=== PATIENT | female | born 1990 | race Caucasian/White ===

== ENCOUNTER → 2017-06-26 19:09 | Outpatient (CLI) | payer MEDICAID, SELFPAY ==
[2017-06-26 23:14] LABS: Chlamydia Trachomatis by PCR Negative (Negative); Neisserai gonorrhoeae by PCR Negative (Negative); Probe Check PASS; Sample Adequacy Control PASS; Specimen Processing Control PASS
[2017-07-18 12:44] LABS: HPV Reflexed? NOT INDICATED
== END ==
PROVIDERS: Visit Provider Obstetrics & Gynecology
DX: R87.612 Low grade squamous intraepithelial lesion on cytologic smear of cervix (LGSIL) (principal); Z12.4 Encounter for screening for malignant neoplasm of cervix; Z11.3 Encounter for screening for infections with a predominantly sexual mode of transmission
CPT/HCPCS: 87491; 87591; 88175; G0145

== ENCOUNTER → 2017-07-10 11:56 | Outpatient (CLI) | payer MEDICAID, SELFPAY ==
[2017-07-10 12:45] LABS: Absolute Lymphocyte Count 1.14 X10^3/ul (0.83-4.51); Absolute Neutrophil Count 3.7 X10^3/uL (2.0-7.7); Basophil# 0.01 X10^3/uL; Basophil% 0.2 % (0-1); Eosinophil# 0.11 X10^3/uL; Hematocrit 35.9 % (37-47); Lymphocyte # 1.14 X10^3/ul (4.0); Lymphocyte % 21.1 % (19-41); Mean Corp Hgb Conc 33.4 g/gl (32-36); Mean Corpuscular Hgb 28.6 pg (27.0-32.0); Mean Corpuscular Volume 85.5 fL (81-99); Monocyte# 0.43 X10^3/uL; Monocyte% 7.9 % (0-10); Neutrophil % 68.4 % (47-70); Platelet Count 191 K/mm3 (150-450); RBC Distribution Width SD 44.1 fl (35.1-43.9); White Blood Count 5.4 K/mm3 (4.4-11.0)
[2017-07-10 12:53] LABS: POSITIVE COUNT NO; POSITIVE DIFFERENTIAL NO; POSITIVE MORPHOLOGY NO
[2017-07-10 13:31] LABS: Color, Urine Yellow (Yellow); Glucose, Dipstick Normal (Normal); Ketone-Dipstick Negative (Negative); Leukocyte Esterase-Dipstick 500 /ul (Negative); Nitrite-Dipstick Negative (Negative); Occult Blood-Urine 25 /ul (Negative); Protein-Dipstick Negative (Negative); Urine Bilirubin Dipstick Negative (Negative); Urine Clarity Cloudy (Clear); Urine Urobilinogen Normal (Normal)
[2017-07-10 13:50] LABS: COTININE Drug Screen Negative (<200 ng/mL)
[2017-07-10 13:54] LABS: Amphetamine Urine VISTA NEGATIVE (<1000 ng/mL); Barbiturate Urine VISTA NEGATIVE (< 200 ng/mL); Benzodiazepine Urine VISTA NEGATIVE (< 200 ng/mL); Cocaine Urine VISTA NEGATIVE (< 300 ng/mL); Ecstacy Urine VISTA NEGATIVE (< 500 ng/mL); Methadone Urine VISTA NEGATIVE (< 300 ng/mL); PCP Urine VISTA NEGATIVE (< 25 ng/mL); THC Urine VISTA NEGATIVE (< 50 ng/mL); Vista UDS pH Range 6
[2017-07-11 02:34] LABS: Prenatal RPR NONREACTIVE (NONREACTIVE)
[2017-07-11 09:07] LABS: HEPATITIS B SURFACE AG Negative (Negative); Hep C Antibodies <0.1 s/co ratio (0.0-0.9)
[2017-07-11 12:33] LABS: HIV - WCH Non-Reactive (Nonreactive); Rubella IgG 121.1 IU/mL
== END ==
PROVIDERS: Visit Provider Obstetrics & Gynecology
DX: Z34.81 Encounter for supervision of other normal pregnancy, first trimester (principal)
CPT/HCPCS: 36415; 80307; 81002; 84443; 85025; 86703; 86762; 86803; 87340

== ENCOUNTER → 2017-11-27 13:21 | Outpatient (CLI) | payer MEDICAID, SELFPAY ==
[2017-11-27 14:03] LABS: Hematocrit 30.1 % (37-47); Hemoglobin 10.1 g/dl (12.0-15.0); Mean Corp Hgb Conc 33.6 g/gl (32-36); Mean Corpuscular Hgb 30.1 pg (27.0-32.0); Mean Corpuscular Volume 89.9 fL (81-99); Mean Platelet Vol. 11.4 fl (6.2-12.0); Platelet Count 172 K/mm3 (150-450); RBC Distribution Width CV 13.2 % (11.6-14.6); RBC Distribution Width SD 41.8 fl (35.1-43.9); Red Blood Count 3.35 M/mm3 (4.2-5.4); White Blood Count 5.6 K/mm3 (4.4-11.0)
[2017-11-27 14:04] LABS: Scan Indicated on CBC? Y/N NO
[2017-11-27 14:08] LABS: Glucose Challenge Gest 1H 50g 100 mg/dL (70-140)
== END ==
PROVIDERS: Visit Provider Obstetrics & Gynecology
DX: Z34.82 Encounter for supervision of other normal pregnancy, second trimester (principal)
CPT/HCPCS: 82950; 85027; 86850; 86870

== ENCOUNTER → 2018-01-30 12:39 | Outpatient (CLI) | payer MEDICAID, SELFPAY ==
[2018-01-30 15:17] LABS: Group B Strep DNA By PCR Negative (Negative); Internal Control PASS; Probe Check PASS; Specimen Processing Control PASS
== END ==
PROVIDERS: Visit Provider Obstetrics & Gynecology
DX: Z36.85 Encounter for antenatal screening for Streptococcus B (principal)
CPT/HCPCS: 87081; 87653

== ENCOUNTER 2018-02-17 08:30 | Inpatient (IN) | payer MEDICAID, SELFPAY ==
[2018-02-17] MEDS: Lactated Ringers 1,000 ML 50 ML IV ×2 (08:55→10:14)
[2018-02-17 09:01] VITALS: BMI 30.4
[2018-02-17 09:17] LABS: Hematocrit 37.2 % (37-47); Hemoglobin 12.3 g/dl (12.0-15.0); Mean Corp Hgb Conc 33.1 g/gl (32-36); Mean Corpuscular Hgb 30.4 pg (27.0-32.0); Mean Corpuscular Volume 92.1 fL (81-99); Mean Platelet Vol. 10.3 fl (6.2-12.0); Platelet Count 118 K/mm3 (150-450); RBC Distribution Width CV 15.3 % (11.6-14.6); RBC Distribution Width SD 51.7 fl (35.1-43.9); Red Blood Count 4.04 M/mm3 (4.2-5.4); White Blood Count 5.7 K/mm3 (4.4-11.0)
[2018-02-17 09:19] LABS: Scan Indicated on CBC? Y/N NO
[2018-02-17] MEDS: fentaNYL-bupivacaine (epidural) 100 ML BAG EPIDURAL (09:35)
[2018-02-17] MEDS: DiphenhydrAMINE 25 MG Capsule PO (13:15)
[2018-02-17] MEDS: Oxytocin 30 units/NS 500 ml 30 UNITS/500 ML IV.SOLN 334 UNITS IV (14:32)
--- NOTE | 2018-02-17 14:45 | PCM.OB.VAG ---
Vaginal Delivery Maternal Presentation: Active Labor 39w3d ega in active labor Amniotic Membrane Rupture Type: Artificial Rupture of Membrane time: 0945 Amniotic Fluid Description: Clear Final LUANNE: 02/21/18 Final LUANNE Source: US <20 weeks Gestational age: 39 Weeks and 3 Days Date of Procedure: 02/17/18 Pre-Operative Diagnosis: Labor Post-Operative Diagnosis: same Surgery/ Procedure Performed: Spontaneous Vaginal Delivery Anesthesiologist: Levy Talbert Type of Anesthesia: Epidural Description of Procedure: Brittani was admitted at 4-5 cm dilated. Uncomplicated . She progressed to over about 6 hours then pushed for about an hour to deliver a live female neonated without complication. Delayed cord clamping was employed. The cord was then clamped and cut and baby placed on mom's chest for skin to skin. Cord bloods were collected. The placenta was delivered spontaneously intact with a centrally located 3VC. The uterus contracted well. The cervix, upper and lower vagina were inspected and found to be intact. Presentation: Vertex Placental Delivery Description: Spontaneous Placenta Disposition: [facility] Percentage of Placenta Abruption: 0 Cord Vessel Description: 3 Vessels Nuchal Cord Compression: Without compression Cord Entanglement: None Estimated Blood Loss: 200cc A gender: Female (1 minute): 9 (5 minute): 9 Episiotomy Description: None Laceration: None Medications given after delivery: IV Pitocin Complications: None
--- NOTE | 2018-02-17 14:52 | DCINST_ITS ---
Discharge Diet: No Restrictions Discharge Activity: Return to Normal Activity, May Drive Return to work on:: 04/20/18 May shower in (days): 0 May resume sexual activity in: 4-6 weeks Call your doctor if your incision/area has: Sudden Increased Bleeding, Foul Smelling Discharge Call your doctor if you observe: Fever of 101 or Higher, Inability to urinate, Inability to have a bowel movement, Using more than one pad per hour, Shortness of breath, Chest pain, Calf discomfort, Uncontrolled pain Cleanse incision/area with: Soap & Water Additional Instructions: If you experience any of the following, contact your healthcare provider. * Bleeding that soaks a pad every hour for 2 hours * Fever 100.4 or higher * Unrelieved incision or abdominal pain * Swelling, redness, discharge or bleeding from your incision or episiotomy site * Your incision begins to separate * Problems urinating (including inability to urinate or burning while urina ting). * Visual changes * Severe headache * Flu-like symptoms * Pain or redness in one of both of your breasts * Pain, warmth, tenderness or swelling in your legs, especially the calf area * Frequent nausea and vomiting * Symptoms of depression or anxiety If you experience any of the following, call 911 or go to the nearest Emergency Room. * Chest pain * Problems breathing * Seizure activity * Partial or complete paralysis of a body part, slurred speech, weakness or drooping of the face, or a sudden inability to walk or hold your balance Allergies/Adverse Reactions: Allergies Penicillins Allergy (Verified 02/17/18 09:04) Hives Medications to take at Discharge Sertraline HCl 1.5 tab PO BID 10/13/15 Ferrous Gluconate 325 mg PO DAILY@0800 02/17/18 Ibuprofen 600 mg PO 4X/DAY #30 tab 02/17/18 Sertraline HCl [Zoloft] 150 mg PO DAILY tablet 02/17/18 The following prescriptions were given: Ibuprofen 600 mg PO 4X/DAY #30 tab Please Follow Up With: Rell Palma MD When: 6 weeks Primary Care Physician: Moises Spence MD [Primary Care Provider] - Test Results: Test results from this visit will be discussed in further detail at your follow- up appointment, if applicable. Proposed Discharge Date: 02/19/18
[2018-02-17] MEDS: Oxytocin 30 units/NS 500 ml 30 UNITS/500 ML IV.SOLN 167 UNITS IV (15:00)
[2018-02-17] MEDS: Methylergonovine 0.2 MG/ML Ampul IM (15:05)
[2018-02-17] MEDS: Ondansetron 4 MG/2 ML Vial IV (16:01)
[2018-02-17 16:10] VITALS: BP 118/61; PULSE 68; RESP 18; TEMP 36.9; O2SAT 99
[2018-02-17] MEDS: Ibuprofen 600 MG Tablet PO (19:11)
[2018-02-17 20:00] VITALS: BP 109/68; PULSE 71; RESP 14; TEMP 36.7; O2SAT 96
[2018-02-17 23:32] VITALS: BP 106/56; PULSE 60; RESP 14; TEMP 36.5; O2SAT 97
[2018-02-18 05:00] VITALS: BP 109/62; PULSE 71; RESP 14; TEMP 36.6; O2SAT 97
[2018-02-18] MEDS: Ibuprofen 600 MG Tablet PO ×2 (05:22→11:17)
[2018-02-18 07:13] LABS: Hematocrit 39.2 % (37-47); Mean Corp Hgb Conc 33.2 g/gl (32-36); Mean Corpuscular Hgb 30.9 pg (27.0-32.0); Mean Corpuscular Volume 93.1 fL (81-99); Mean Platelet Vol. 10.7 fl (6.2-12.0); Platelet Count 99 K/mm3 (150-450); RBC Distribution Width CV 15.4 % (11.6-14.6); RBC Distribution Width SD 52.2 fl (35.1-43.9); Red Blood Count 4.21 M/mm3 (4.2-5.4); Scan Indicated on CBC? Y/N NO
[2018-02-18] MEDS: Acetaminophen 500 MG Tablet 1000 MG PO (08:02)
[2018-02-18 08:12] VITALS: BP 105/59; PULSE 70; RESP 18; TEMP 36.4
--- NOTE | 2018-02-18 08:32 | PCM.PN.OB ---
Subjective: Some right upper leg weakness but had before delivery as well. Bleeding light. Breast feeding. Objective: Afeb VSS Hgb appropriate. Received rhogam. - Physical Exam General: Alert, Oriented x3, Cooperative, No apparent distress Lungs: Clear to auscultation, Normal air movement Cardiovascular: Regular rate, Regular Rhythm Abdomen: Soft, Non Tender, Non-Distended, - - Fundus firm nontender Extremities: No edema, No Calf Tenderness Skin: No rashes Neurological: Neuro grossly intact Psych/Mental Status: Normal Affect Comment: Lochia light Vital Signs Temp Pulse Resp BP Pulse Ox 97.6 F L 70 18 105/59 L 97 02/18/18 08:12 02/18/18 08:12 02/18/18 08:12 02/18/18 08:12 02/18/18 05:00 Oxygen Delivery Method Room Air Weight: 166 lb 6.4 oz Body Mass Index (BMI) 30.4 Intake and Output for Last 24 Hours 02/16/18 02/17/18 02/18/18 23:59 23:59 23:59 Output Total 1200 / 1200 Balance -1200 / -1200 Laboratory Tests Past 24 Hrs 02/17/18 02/17/18 02/17/18 08:55 08:55 17:52 WBC 5.7 RBC 4.04 L Hgb 12.3 Hct 37.2 MCV 92.1 MCH 30.4 MCHC 33.1 RDW 15.3 H RDW Differential 51.7 H Plt Count 118 L MPV 10.3 Blood Type O NEGATIVE Antibody Screen NEGATIVE Screen NEGATIVE Baby's Blood Type O POSITIVE Baby's NICOLE NEGATIVE 02/18/18 07:00 WBC 8.0 RBC 4.21 Hgb 13.0 Hct 39.2 MCV 93.1 MCH 30.9 MCHC 33.2 RDW 15.4 H RDW Differential 52.2 H Plt Count 99 L MPV 10.7 Blood Type Antibody Screen Screen Baby's Blood Type Baby's NICOLE Medical Necessity - Tobacco Use Smoking Status: Never smoker Assessment/Plan Doiong well on PP day#1. Cleared for discharge home early as patient's having surgery tomorrow. Home going instructions and warnings given.
--- NOTE | 2018-02-18 08:37 | DS.PCM_ITS ---
Discharge Date and Diagnosis Date of Admission: 02/17/18 Date of Discharge: 02/18/18 - Primary Discharge Diagnosis s/p Hospital Course and Treatment Operations: None Procedures: - - Epidural anesthesia, Summary of Care Provided: The patient is a 27 year old F [admitted in active labor, progressed to FD then pushed to deliver a live female without complication. Post co urse unremarkable. Discharged home on PP day#1.] - Physical Exam Vital Signs Temp Pulse Resp BP Pulse Ox 97.6 F L 70 18 105/59 L 97 02/18/18 08:12 02/18/18 08:12 02/18/18 08:12 02/18/18 08:12 02/18/18 05:00 Oxygen Delivery Method Room Air Weight: 166 lb 6.4 oz Body Mass Index (BMI) 30.4 Intake and Output for Last 24 Hours 02/16/18 02/17/18 02/18/18 23:59 23:59 23:59 Output Total 1200 / 1200 Balance -1200 / -1200 Laboratory Tests Past 24 Hrs 02/17/18 02/17/18 02/17/18 08:55 08:55 17:52 WBC 5.7 RBC 4.04 L Hgb 12.3 Hct 37.2 MCV 92.1 MCH 30.4 MCHC 33.1 RDW 15.3 H RDW Differential 51.7 H Plt Count 118 L MPV 10.3 Blood Type O NEGATIVE Antibody Screen NEGATIVE Screen NEGATIVE Baby's Blood Type O POSITIVE Baby's NICOLE NEGATIVE 02/18/18 07:00 WBC 8.0 RBC 4.21 Hgb 13.0 Hct 39.2 MCV 93.1 MCH 30.9 MCHC 33.2 RDW 15.4 H RDW Differential 52.2 H Plt Count 99 L MPV 10.7 Blood Type Antibody Screen Screen Baby's Blood Type Baby's NICOLE Discharge Diet: No Restrictions Discharge Activity: Return to Normal Activity, May Drive Return to work on:: 04/20/18 May shower in (days): 0 May resume sexual activity in: 4-6 weeks Call your doctor if your incision/area has: Sudden Increased Bleeding, Foul Smelling Discharge Call your doctor if you observe: Fever of 101 or Higher, Inability to urinate, Inability to have a bowel movement, Using more than one pad per hour, Shortness of breath, Chest pain, Calf discomfort, Uncontrolled pain Cleanse incision/area with: Soap & Water Home Medications: Medications to take at Discharge Sertraline HCl 1.5 tab PO BID 10/13/15 Ferrous Gluconate 325 mg PO DAILY@0800 02/17/18 Ibuprofen 600 mg PO 4X/DAY #30 tab 02/17/18 Sertraline HCl [Zoloft] 150 mg PO DAILY tablet 02/17/18 Following Prescrptions Were Given to Patient: Ibuprofen 600 mg PO 4X/DAY #30 tab Primary Care Physician: Moises Spence MD [Primary Care Provider] - Please Follow Up With: Rell Palma MD When: 6 weeks Disposition: Home Minutes spent on discharge:: 15 Patient Condition:: Good Medical Necessity - Tobacco Use Smoking Status: Never smoker Meaningful Use Info Meaningful Use Diagnoses (Choose all that apply): None applicable
--- NOTE | 2018-02-18 09:28 | CASEMGMT ---
Social Work Note Please see attached assessment. Face to face with MOB, and Christopher RODRIGUEZ. is in bassinet at side of MOB's bed. MOB presents with pleasant affect as evidenced by smiling and willingness to participate in assessment. FOB sat off to the side on the sofa with little to say. Interactions between MOB and FOB were appropriate, no cause for concern. MOB does not work, but FOB works [employer]. They have a 2 year old daughter at home, and MOB will be primary caregiver for this infant as well. Both parents report adequate supports among family locally. MOB has hx of depression and anxiety. Presently is prescribed Zoloft through Dr. Palma. No hx of PPD with last child. Educate to PPD and provide with information packet for both MOB and FOB to review. Inform that if symptoms would persist to schedule an appointment with Dr. Palma. Understanding expressed. No hx reported of substance use hx and no concerns with substance use/abuse throughout . They have access to transportation as needed, and utilize [facility] for Medicaid. They deny having food stamps, or any services through [facility]. Educate them to this service and per MOB, MICHAEL does not want her using WIC. Information provided in case they change their mind upon home going. Claim to have all necessary supplies including crib, clothes, car seat, diaper, bottles, etc. No further needs expressed and both MOB and FOB made aware that SW is available if needs arise. Ayanna Delacruz, SOLUTION MANAGER, [place]
[2018-02-18 11:22] VITALS: BP 109/67; PULSE 65; RESP 18; TEMP 36.4
[2018-02-18 16:00] VITALS: BP 131/69; PULSE 66; RESP 16; TEMP 36.5
== END 2018-02-18 18:30 | disposition home or self-care (01) | DRG 560 ==
PROVIDERS: Admitting Provider Obstetrics & Gynecology; Family Provider Family Medicine; PCP Family Medicine; Referring Provider Obstetrics & Gynecology; Visit Provider Obstetrics & Gynecology
DX: O99.344 Other mental disorders complicating childbirth (principal); O69.81X0 Labor and delivery complicated by cord around neck, without compression, not applicable or unspecified; F41.9 Anxiety disorder, unspecified; Z3A.39 39 weeks gestation of pregnancy; Z37.0 Single live birth; Z79.899 Other long term (current) drug therapy
CPT/HCPCS: 59025; 59050; 85027; 85461; 86850; 86900; 90384; 99218; J7120; G0378; J2405; J2790

== ENCOUNTER → 2018-07-09 15:36 | Outpatient (CLI) | payer SELFPAY ==
[2018-07-16 15:47] LABS: HPV HC, High Risk Negative (Negative)
== END ==
PROVIDERS: PCP Family Medicine; Visit Provider Obstetrics & Gynecology
DX: Z12.4 Encounter for screening for malignant neoplasm of cervix (principal)
CPT/HCPCS: 87624; 88175; G0145

== ENCOUNTER → 2020-03-22 09:35 | Outpatient (CLI) | payer OTHER, MEDICAID, SELFPAY ==
--- NOTE | 2020-03-22 09:39 | US_ITS ---
STUDY: ABDOMINAL ULTRASOUND REASON FOR EXAM: Female, 29 years old. GENERALIZED ABDOMINAL PAIN TECHNIQUE: Transabdominal ultrasound was performed with real-time and static narayanan scale imaging. TECHNICAL QUALITY: Adequate. COMPARISON: None. FINDINGS: Liver: The liver measures 15.8 cm. There is normal echogenicity of the liver. The bile ducts are within normal limits. There is hepatic color flow. The direction of portal flow is hepatopetal. There is no demonstrated mass lesion. Portal vein measurement: Gallbladder: Normal distended gallbladder. The gallbladder wall measures 1 mm. There is a negative sonographic Limon''s sign. There is no pericholecystic fluid. There are no gallstones. Common Bile Duct (C.B.D.): The common bile duct measures 2.0 mm. Pancreas: Normal size of the head, body and tail of the pancreas. There is normal echogenicity of the pancreas. There is no demonstrated pancreatic mass or cyst. Spleen: Normal size of the spleen. The spleen measures 11.2 cm x 4.1 cm x 4.3 cm. Right Kidney: Normal size of the right kidney. The right kidney measures 9.6 cm x 3.9 centimeters x 4.3 cm. Normal renal cortex. The right cortex measures 1 cm. There is no demonstrated renal mass or cyst. There is no right hydronephrosis. Left Kidney: Normal size of the left kidney. The left kidney measures 9.8 cm x 4 cm x 3.8 cm. Normal renal cortex. The left cortex measures 1.2 cm. There is no demonstrated renal mass or cyst. There is no left hydronephrosis. Aorta: Unremarkable. I.V.C.: The IVC is patent. There is no ascites. US/Abdomen Complete IMPRESSION: Normal abdominal ultrasound examination. Electronically Signed: Juan Choi, at 15:20 EST , Service support ,
== END ==
PROVIDERS: PCP Family Medicine; Referring Provider Family Medicine; Visit Provider Family Medicine
DX: R19.04 Left lower quadrant abdominal swelling, mass and lump (principal); R10.9 Unspecified abdominal pain
CPT/HCPCS: 76700

== ENCOUNTER → 2021-03-22 13:43 | Outpatient (CLI) | payer MEDICAID, SELFPAY ==
--- NOTE | 2021-03-22 13:46 | US_ITS ---
STUDY: ULTRASOUND OF THE FEMALE PELVIS - COMPLETE REASON FOR EXAM: Female, 30 years old. UTERINE ENLARGEMENT LMP: 03/21/2021. TECHNIQUE: Transabdominal and Transvaginal TECHNICAL QUALITY: Adequate. COMPARISON: None. FINDINGS: The uterus is anteverted and is in a midline position. The uterus measures 8 cm x 5.6 x 5.1 cm. Normal uterine cervix. The endometrium measures 4.7 mm in thickness, and is hyperechoic. There is no demonstrated endometrial mass. The uterus is of heterogeneous echotexture. No focal fibroid is seen. I.U.D. - The patient does not have an I.U.D. The right ovary is visualized. The right ovary measures 3.7 cm x 2.3 cm x 2.1 cm. There is no right ovarian cyst or ovarian mass. There is no visualized right adnexal mass or complex lesion. There is normal arterial and normal venous vascularity. The left ovary is visualized. The left ovary measures 2 cm x 2.5 cm x 2.6 cm. There is no left ovarian cyst or ovarian mass. There is no visualized left adnexal mass or complex lesion. There is normal arterial and normal venous vascularity. There is no fluid in the cul-de-sac. The pre void volume of the bladder was 660 ml. US/Pelvic (Non ) IMPRESSION: Heterogeneous echotexture of the uterine fundus although no focal fibroid is seen. Electronically Signed: Juan Choi MD at 15:42 EST , Service support ,
--- NOTE | 2021-03-22 13:46 | US_ITS ---
STUDY: ULTRASOUND OF THE FEMALE PELVIS - COMPLETE REASON FOR EXAM: Female, 30 years old. UTERINE ENLARGEMENT LMP: 03/21/2021. TECHNIQUE: Transabdominal and Transvaginal TECHNICAL QUALITY: Adequate. COMPARISON: None. FINDINGS: The uterus is anteverted and is in a midline position. The uterus measures 8 cm x 5.6 x 5.1 cm. Normal uterine cervix. The endometrium measures 4.7 mm in thickness, and is hyperechoic. There is no demonstrated endometrial mass. The uterus is of heterogeneous echotexture. No focal fibroid is seen. I.U.D. - The patient does not have an I.U.D. The right ovary is visualized. The right ovary measures 3.7 cm x 2.3 cm x 2.1 cm. There is no right ovarian cyst or ovarian mass. There is no visualized right adnexal mass or complex lesion. There is normal arterial and normal venous vascularity. The left ovary is visualized. The left ovary measures 2 cm x 2.5 cm x 2.6 cm. There is no left ovarian cyst or ovarian mass. There is no visualized left adnexal mass or complex lesion. There is normal arterial and normal venous vascularity. There is no fluid in the cul-de-sac. The pre void volume of the bladder was 660 ml. US/Transvaginal Non- IMPRESSION: Heterogeneous echotexture of the uterine fundus although no focal fibroid is seen. Electronically Signed: Juan Choi MD at 15:42 EST , Service support ,
== END ==
PROVIDERS: PCP Family Medicine; Referring Provider Family Medicine; Visit Provider Family Medicine
DX: N85.2 Hypertrophy of uterus (principal)
CPT/HCPCS: 76830; 76856

== ENCOUNTER → 2021-08-28 | Outpatient (CLI) | payer MEDICAID, SELFPAY ==
--- NOTE | 2021-08-28 15:07 | CT_ITS ---
STUDY: CT Abdomen And Pelvis W/ Contrast Injection 08/28/2021 3:49 PM REASON FOR EXAM: Female, 30 years old. ABDOMINAL PAIN abd pain TECHNIQUE: Transaxial images were obtained with oral contrast, and with Oral and IV Readi-CAT and 75mL Isovue-300 intravenous contrast. Individualized dose optimization techniques were used for this CT. COMPARISON: None. FINDINGS: The visualized lung bases are unremarkable. The visualized portions of the heart are within normal limits. Unremarkable liver. Unremarkable gallbladder and extrahepatic biliary system. Unremarkable spleen. Unremarkable pancreas. Unremarkable bilateral adrenal glands. No acute findings of the right kidney. No acute findings of the left kidney. Retroaortic left renal vein. Unremarkable visualized stomach. Unremarkable small intestine. Unremarkable colon. The appendix is visualized and appears unremarkable. There are no acute findings of the abdominal aorta. Unremarkable inferior vena cava. Subcentimeter mesenteric lymph nodes. Unremarkable urinary bladder. Normal visualized uterus. There is an umbilical hernia containing fat. Unremarkable osseous structures. CT/Abdomen/Pelvis WITH Contrast IMPRESSION: (NOT LISTED IN ORDER OF SIGNIFICANCE) There are no acute findings. Other findings as above. Electronically Signed: Ned Pinon MD at 15:51 EDT ,
== END | disposition home or self-care (01) ==
LOC: CT 15:05
PROVIDERS: PCP Family Medicine; Visit Provider Internal Medicine Gastroenterology
DX: R10.9 Unspecified abdominal pain (principal)
CPT/HCPCS: 74177; Q9967

== ENCOUNTER 2021-11-12 06:48 | Day surgery (SDC) | payer MEDICAID, SELFPAY ==
[2021-11-12 07:11] VITALS: BP 104/54; PULSE 62; RESP 18; TEMP 36.5; O2SAT 100; BMI 28.8
--- NOTE | 2021-11-12 07:12 | HP.PCM_ITS ---
History and Physical Date of Admission: 11/12/21 JULIUS FONTANEZ, is a 30 F who presents to the office today for Follow up visit. Julius established with this clinic 06.01.21 with referral from her PCP to evaluation abdominal pain with loss of appetite and LLQ pain with PO intake. PMH includes depression (sertraline), anxiety r/t ADD (guanfacine), paresthesia. Depression is being managed by PCP whose note states that she often feels like sobbing, is frustrated with her children. Her sertraline was increased to 150mg QD and she was encouraged to reestablish with counseling services. US abd 12.16.20 found liver measurement 15.8 with normal echogenicity. Remaining exam without chronic or acute remark. Plan last visit 06.01.21: Abdominal pain ? likely functional. Counseling encouraged. Reports that her abdominal pain has much improved but does continue to have discomfort. Acidic foods cause her to have discomfort. Feels that much of her difficulty is related to stress. She has been able to establish with counseling services and feels this is going well. ROS Const Constitutional: No fatigue, malaise, night sweats, weight change, sleep problems, abnormal sleep pattern or change in appetite ENT ENT: No difficulty swallowing, hoarseness or sore throat Cardio Cardiology: No chest pain at rest Gastro GI: No belching, bloating, change in bowel habits, change in stool character, coffee ground emesis, constipation, cramping, diarrhea, heartburn, difficulty swallowing, feeling full early, excessive flatus, incontinent of stools, Vomiting blood/hematemesis, Blood in stool, loose stools, Black,tarry stools, nausea/dyspepsia, pain with swallowing, vomiting or other Musc Musculoskeletal: No joint pain Skin Skin: No yellowing of the eye or itchy eyes Neuro Neurology: No behavioral changes Psych Psychiatric: No abnormal sleep pattern, No anxiety, No behavioral changes, No change in appetite and No depression Endo Endocrine: No fatigue or weight change Aller/Imm Allergy/Immunologic: No itchy eyes Gerardo/Lymp Hematologic/Lymphatic: No easy bleeding or easy bruising Exam Const General: cooperative and comfortable Nutritional Appearance: average body habitus and well nourished HENMT Head: normal to inspection Ears: hearing grossly normal bilaterally Nose: external nose normal Face and sinus: normal facial exam Mouth: oral mucosae normal Throat: posterior oropharynx normal Eyes General: appearance normal, both eyes and all related structures Neck Neck: normal visual inspection Chest Chest palpation & inspection: normal inspection of the chest and normal palpation of entire chest wall Resp Effort & Inspection: normal respiratory effort Auscultation: Bilateral: Clear to Auscultation Cardio Palpation: normal PMI Rate: regular rate Rhythm: regular rhythm GI Inspection: normal to inspection Auscultation: normal bowel sounds Percussion: normal to percussion Palpation: no hepatosplenomegaly Skin General: no rashes or lesions noted Neuro General: patient alert Extrem General: normal to inspection Psych Affect: normal affect Quality Reporting Tobacco Screening ([facility] 138) Smoking Status: Never smoker Assessment and Plan Assessment and Plan (1) Abdominal pain: ?Status:?Acute ? ? ? Orders:?Orders: ? Abdomen/Pelvis WITH Contrast Today ?Plan - Dr. Vallejo Friend, DO: I believe her abdominal pain is likely functional however she is giving signs and symptoms of atypical gastroesophageal reflux disease, gastritis or duodenitis.? Typically diagnosis would be eosinophilic gastroenteritis, H. p ylori associated gastritis, celiac disease.? She will undergo an upper endoscopy with upper GI tract we will also get a CT scan abdomen pelvis.? She was explained alternatives, risk, benefits including not withstanding bleeding, infection, sepsis, perforation, need for emergent .? Should have an ASA 1. I have re-examined the patient. There are no clinical changes since date of exam.
[2021-11-12 07:15] LABS: Internal QC Validated? YES +Cl - CLEAR BKGD; Pregnancy, Urine Negative Negative
[2021-11-12] MEDS: Lactated Ringers 1,000 ML 15 ML IV (07:22)
--- NOTE | 2021-11-12 08:00 | EGD_PTH ---
PATIENT: JULIUS FONTANEZ LOC: EN U#:[id number] AGE/SX: 31/F ROOM: RE11/12/[address]: Dr. Yoni Trejo DO : 1990 BED: DIS: 11/12/2021 SPEC #: [id number] RECD: 11/12/21 10:57 STATUS: OPWER MITCH #: [id number] SUSAN: 11/12/21 08:[address]: Yoni Trejo DEPT: SURGICAL PATHOLOGY RECD BY: Kiarra Ravi ENTERED: 11/12/21 13:02 SP TYPE: EGD BIOPSY UMBERTO DR: Dr. Chuck Bolden MD Tissues: A - Duodenum, NOS B - Esophagus, NOS Procedures: Special Stain Group II Surgery Specimen Level IV Alcian Blue/PAS (control) HEADER OPERATION: [place] [place] PRE-OP DIAGNOSIS: Abdominal pain TISSUE SUBMITTED: A ? Duodenum biopsy, B ? Distal esophagus biopsy MICROSCOPIC DIAGNOSIS A. Duodenum, biopsy: No pathologic change. B. Distal esophagus, biopsy: Fragments of gastric mucosa with mild chronic inflammation. No evidence of goblet cell metaplasia. See comment. AM:rey 11/13/2021 COMMENT B. Alcian blue/PAS stain with matched control supports the above diagnosis. MICROSCOPIC DESCRIPTION Slides are reviewed. GROSS DESCRIPTION A - Received in fixative is one container labeled with the patient's name and designated biopsy duodenum. The specimen consists of one irregular fragment of light hinton soft tissue that measures 0.4 x 0.3 x 0.1 cm. The specimen is totally submitted in one cassette. B - Received in fixative is one container labeled with the patient's name and designated biopsy distal esophagus. The specimen consists of two irregular fragments of light hinton soft tissue that in aggregate measure 0.8 x 0.3 x 0.1 cm. The specimen is totally submitted in one cassette. / SJ:rey 11/12/2021 TC:3 CPT: 91626 x2, 91301
--- NOTE | 2021-11-12 08:11 | OP.EGD_ITS ---
Patient Name: Brittani Lee Procedure Date: 11/12/2021 7:55 AM Date of : 1990 Age: 31 Procedure: Upper GI endoscopy Indications: Epigastric abdominal pain, Functional Dyspepsia, Failure to respond to medical treatment Providers: Yoni Trejo DO Medicines: Monitored Anesthesia Care Patient Profile: This is a 31 year old female. Refer to note in patient chart for documentation of history and physical. Patient has symptoms. Complications: No immediate complications. Procedure: Pre-Anesthesia Assessment: - Prior to the procedure, a History and Physical was performed, and patient medications and allergies were reviewed. The patient is competent. The risks and benefits of the procedure and the sedation options and risks were discussed with the patient. All questions were answered and informed consent was obtained. Patient identification and proposed procedure were verified by the physician in the pre-procedure area. Mental Status Examination: alert and oriented. Airway Examination: normal oropharyngeal airway and neck mobility. Respiratory Examination: clear to auscultation. CV Examination: normal. Prophylactic Antibiotics: The patient does not require prophylactic antibiotics. Prior Anticoagulants: The patient has taken no previous anticoagulant or antiplatelet agents. ASA Grade Assessment: II - A patient with mild systemic disease. After reviewing the risks and benefits, the patient was deemed in satisfactory condition to undergo the procedure. The anesthesia plan was to use moderate sedation / analgesia (conscious sedation). Immediately prior to administration of medications, the patient was re-assessed for adequacy to receive sedatives. The heart rate, respiratory rate, oxygen saturations, blood pressure, adequacy of pulmonary ventilation, and response to care were monitored throughout the procedure. The physical status of the patient was re-assessed after the procedure. After obtaining informed consent, the endoscope was passed under direct vision. Throughout the procedure, the patient's blood pressure, pulse, and oxygen saturations were monitored continuously. The gastroscope was introduced through the mouth, and advanced to the second part of duodenum. The upper GI endoscopy was accomplished without difficulty. The patient tolerated the procedure well. Scope In: 8:04:27 AM Scope Out: 8:07:37 AM Total Procedure Duration Time 0 hours 3 minutes 10 seconds Findings: The Z-line was irregular and was found 38 cm from the incisors. Biopsies were taken with a cold forceps for histology. No gross lesions were noted in the stomach. The cardia and gastric fundus were normal on retroflexion. No gross lesions were noted in the first portion of the duodenum. Biopsies were taken with a cold forceps for histology. Verification of patient identification for the specimen was done. Estimated blood loss was minimal. Impression: - Z-line irregular, 38 cm from the incisors. Biopsied. - No gross lesions in the stomach. - No gross lesions in the first portion of the duodenum. Biopsied. Recommendation: - Discharge patient to home. - Resume previous diet. - Continue present medications. - Await pathology results. Procedure Code(s): --- Professional --- 19512, Esophagogastroduodenoscopy, flexible, transoral; with biopsy, single or multiple CPT copyright 2017 [employer]. All rights reserved. The codes documented in this report are preliminary and upon ship's engineer review may be revised to meet current compliance requirements. Yoni Trejo DO 11/12/2021 8:11:46 AM This report has been signed electronically. Number of Addenda: 1 Note Initiated On: 11/12/2021 7:55 AM Addendum Number: 1 Addendum Date: 01/10/2022 6:25:33 AM MAC was used as sedation for this procedure. Yoni Trejo DO 01/10/2022 6:25:40 AM This report has been signed electronically.
--- NOTE | 2021-11-12 08:12 | OP.CCLET_ITS ---
01/10/2022 Chuck Bolden Md Re : Upper GI endoscopy procedure for Brittani Lee Dear Yuan This procedure was performed on Friday, November 12, 2021. My impressions and recommendations are as follows: Impressions : - Z-line irregular, 38 cm from the incisors. Biopsied. - No gross lesions in the stomach. - No gross lesions in the first portion of the duodenum. Biopsied. Recommendations : - Discharge patient to home. - Resume previous diet. - Continue present medications. - Await pathology results. My findings are described in the full procedure note, which is enclosed. If I can be of further assistance, please feel free to contact me at . Sincerely, Yoni Trejo, 11/12/2021 8:11:46 AM This report has been signed electronically.
[2021-11-12 08:14] VITALS: BP 104/54; BP 95/61; PULSE 69; RESP 14; TEMP 36.6; O2SAT 98
[2021-11-12 08:20] VITALS: BP 100/61; BP 104/54; PULSE 65; RESP 14; O2SAT 98
[2021-11-12 08:25] VITALS: BP 103/63; BP 104/54; PULSE 62; RESP 14; O2SAT 98
[2021-11-12 08:30] VITALS: BP 104/54; BP 104/63; PULSE 60; RESP 14; O2SAT 98
[2021-11-12 08:39] VITALS: BP 102/73; BP 104/54; PULSE 59; RESP 14; TEMP 36.6; O2SAT 99
== END 2021-11-12 09:06 | disposition home or self-care (01) ==
LOC: EN 06:48 → AC 06:50
PROVIDERS: Anesthesiology; PCP Family Medicine; Referring Provider Family Medicine; Visit Provider Internal Medicine Gastroenterology
PROC: 0DJ08ZZ Inspection of Upper Intestinal Tract, Via Natural or Artificial Opening Endoscopic (ICD-10-PCS; CPT 43235; principal; 2021-11-12 07:55)
DX: K20.90 Esophagitis, unspecified without bleeding (principal); F32.A Depression, unspecified; F41.9 Anxiety disorder, unspecified; Z79.899 Other long term (current) drug therapy
CPT/HCPCS: 43239; 81025; 88305; 88313; J2405

== ENCOUNTER 2021-12-31 08:22 | Day surgery (SDC) | payer MEDICAID, SELFPAY ==
[2021-12-31] VITALS (7 sets, daily range): BP systolic 100–115; BP diastolic 60–74; PULSE 69–81; RESP 16; TEMP 36.2–36.6; O2SAT 98–100; BMI 29.0
[2021-12-31] MEDS: Lactated Ringers 1,000 ML 15 ML IV (09:05)
[2021-12-31 09:09] LABS: Internal QC Validated? YES +Cl - CLEAR BKGD; Pregnancy, Urine Negative Negative
--- NOTE | 2021-12-31 09:15 | COLBX_PTH ---
PATIENT: JULIUS FONTANEZ LOC: EN U#:[id number] AGE/SX: 31/F ROOM: RE12/31/[address]: Dr. Yoni Trejo DO : 1990 BED: DIS: 12/31/2021 SPEC #: [id number] RECD: 12/31/21 11:07 STATUS: POWER MITCH #: [id number] SUSAN: 12/31/21 09:[address]: Yoni Trejo DEPT: SURGICAL PATHOLOGY RECD BY: Kiarra Ravi ENTERED: 12/31/21 12:44 SP TYPE: COLON BX OT DR: Dr. Chuck Bolden MD Tissues: A - Small intestine biopsy B - COLON BIOPSY Procedures: Surgery Specimen Level IV HEADER OPERATION: Colonoscopy (MAC), biopsy PRE-OP DIAGNOSIS: Abdominal pain TISSUE SUBMITTED: A ? Small bowel biopsy, B ? Random colonic biopsy MICROSCOPIC DIAGNOSIS A. Small bowel, biopsy: Fragments of small intestinal mucosa, no pathologic diagnosis. B. Colon, random biopsy: Fragments of colonic mucosa with pigment laden macrophages, consistent with melanosis coli. RALPH:rey 01/01/2022 MICROSCOPIC DESCRIPTION Slides are reviewed. GROSS DESCRIPTION A - Received in fixative is one container labeled with the patient's name and designated small bowel biopsy. The specimen consists of multiple irregular fragments of light hinton soft tissue that in aggregate measure 1.5 x 0.3 x 0.1 cm. The specimen is totally submitted in one cassette. B - Received in fixative is one container labeled with the patient's name and designated random colonic biopsy. The specimen consists of multiple irregular fragments of light hinton soft tissue that in aggregate measure 1 x 0.5 x 0.1 cm. The specimen is totally submitted in one cassette. / RALPH:rey 12/31/2021 TC:5 CPT: 31759 x2
--- NOTE | 2021-12-31 09:24 | PCM.HP.BLA ---
History and Physical Date of Admission: 12/31/21 JULIUS FONTANEZ, is a 31 F who presents to the office today for Follow up visit. Julius established with this clinic 06.01.21 with referral from her PCP to evaluation abdominal pain with loss of appetite and LLQ pain with PO intake. PMH includes depression (sertraline), anxiety r/t ADD (guanfacine), paresthesia. Depression is being managed by PCP whose note states that she often feels like sobbing, is frustrated with her children. Her sertraline was increased to 150mg QD and she was encouraged to reestablish with counseling services. US abd 03.22.20 found liver measurement 15.8 with normal echogenicity. Remaining exam without chronic or acute remark. CT abd/pel 08.28.21 without acute or chronic findings. EGD 11.12.21 Zline irregular 38cm from incisors with inflammation. No pathologic changes. Plan last visit 08.16.21: Abdominal pain ? imaging and EGD recommended. Continues to have daily left flank sharp pain that is present all day; does not interrupt sleep. No aggravating or alleviating factors. BM 2-3 times a day depending on food intake with normal stool consistency and no straining. ROS Const Constitutional: No fatigue, malaise, night sweats, weight change, sleep problems, abnormal sleep pattern or change in appetite ENT ENT: No difficulty swallowing, hoarseness or sore throat Cardio Cardiology: No chest pain at rest Gastro GI: No belching, bloating, change in bowel habits, change in stool character, coffee ground emesis, constipation, cramping, diarrhea, heartburn, difficulty swallowing, feeling full early, excessive flatus, incontinent of stools, Vomiting blood/hematemesis, Blood in stool, loose stools, Black,tarry stools, nausea/dyspepsia, pain with swallowing, vomiting or other Musc Musculoskeletal: No joint pain Skin Skin: No yellowing of the eye or itchy eyes Neuro Neurology: No behavioral changes Psych Psychiatric: No abnormal sleep pattern, No anxiety, No behavioral changes, No change in appetite and No depression Endo Endocrine: No fatigue or weight change Aller/Imm Allergy/Immunologic: No itchy eyes Gerardo/Lymp Hematologic/Lymphatic: No easy bleeding or easy bruising Exam Const General: cooperative and comfortable Nutritional Appearance: average body habitus and well nourished HENMT Head: normal to inspection Ears: hearing grossly normal bilaterally Nose: external nose normal Face and sinus: normal facial exam Mouth: oral mucosae normal Throat: posterior oropharynx normal Eyes General: appearance normal, both eyes and all related structures Neck Neck: normal visual inspection Chest Chest palpation & inspection: normal inspection of the chest and normal palpation of entire chest wall Resp Effort & Inspection: normal respiratory effort Auscultation: Bilateral: Clear to Auscultation Cardio Palpation: normal PMI Rate: regular rate Rhythm: regular rhythm GI Inspection: normal to inspection Auscultation: normal bowel sounds Percussion: normal to percussion Palpation: no hepatosplenomegaly Skin General: no rashes or lesions noted Neuro General: patient alert Extrem General: normal to inspection Psych Affect: normal affect Quality Reporting Tobacco Screening ([facility] 138) Smoking Status: Never smoker Assessment and Plan Assessment and Plan (1) Abdominal pain: ?Status:?Chronic ?Plan: On her upper endoscopy she was discovered to have LA grade a erosive esophagitis.? Biopsies were negative for intestinal metaplasia, Gallo's esophagus or severe disease.? There also was no signs of eosinophilic esophagitis on biopsies.? She has a small hiatal hernia but I do not think that is causing her symptoms at this time.? She did have some mild gastritis we will give her a short course of sulcal fate therapy for that.? She is getting intermittent left lower quadrant pain that she had prior to the upper abdominal pain. ?I think it is not likely secondary to mesenteric lymphadenitis, inflammatory bowel disease or any inflammatory disease of the small bowel or colon.? However due to her persistent localized left lower quadrant pain she would like to have a colonoscopy to make sure that there is no underlying inflammatory disease is not being seen on imaging.? I think this is reasonable because she is not had any relief from typical therapy.? We will give her for IBS type symptoms.? I think the neck step is to look in her colon to see if there is intra luminal pathology that would need to be addressed. ? ? ? Medications: New sucralfate 1 g? PO BID 60 tabs 1RF ? ? dicyclomine 20 mg? PO TID PRN 90 tabs 1RF pain (scale score 4-6) I have re-examined the patient. There are no clinical changes since date of exam.
--- NOTE | 2021-12-31 10:35 | OP.COLON_ITS ---
Patient Name: Brittani Lee Procedure Date: 12/31/2021 10:06 AM Date of : 1990 Age: 31 Procedure: Colonoscopy Indications: Abdominal pain in the left lower quadrant Providers: Yoni Trejo DO Medicines: Monitored Anesthesia Care Patient Profile: Last Colonoscopy: none. The patient's first colonoscopy is today. This is a 31 year old female. Refer to note in patient chart for documentation of history and physical. Patient has symptoms of chronic abdominal cramping and chronic left lower quadrant abdominal pain. Complications: No immediate complications. Procedure: Pre-Anesthesia Assessment: - Prior to the procedure, a History and Physical was performed, and patient medications and allergies were reviewed. The risks and benefits of the procedure and the sedation options and risks were discussed with the patient. All questions were answered and informed consent was obtained. Patient identification and proposed procedure were verified in the pre-procedure area. Mental Status Examination: alert and oriented. Airway Examination: normal oropharyngeal airway and neck mobility. Respiratory Examination: clear to auscultation. CV Examination: normal. Prophylactic Antibiotics: The patient does not require prophylactic antibiotics. Prior Anticoagulants: The patient has taken no previous anticoagulant or antiplatelet agents. ASA Grade Assessment: II - A patient with mild systemic disease. After reviewing the risks and benefits, the patient was deemed in satisfactory condition to undergo the procedure. The anesthesia plan was to use monitored anesthesia care (MAC). Immediately prior to administration of medications, the patient was re-assessed for adequacy to receive sedatives. The heart rate, respiratory rate, oxygen saturations, blood pressure, adequacy of pulmonary ventilation, and response to care were monitored throughout the procedure. The physical status of the patient was re-assessed after the procedure. After I obtained informed consent, the scope was passed under direct vision. Throughout the procedure, the patient's blood pressure, pulse, and oxygen saturations were monitored continuously. The pediatric colonoscope was introduced through the anus and advanced to the terminal ileum. The colonoscopy was performed without difficulty. The patient tolerated the procedure well. The quality of the bowel preparation was adequate. Scope In: 10:17:04 AM Scope Withdrawal Time 0 hours 6 minutes 51 seconds Scope Out: 10:29:31 AM Total Procedure Duration Time 0 hours 12 minutes 27 seconds Findings: The perianal and digital rectal examinations were normal. A diffuse area of moderate melanosis was found in the entire colon. Biopsies were taken with a cold forceps for histology. Verification of patient identification for the specimen was done. Estimated blood loss was minimal. A patchy area of the terminal ileum was congested. Biopsies were taken with a cold forceps for histology. Verification of patient identification for the specimen was done. Estimated blood loss was minimal. Impression: - Melanosis in the colon. Biopsied. - Congested mucosa in the terminal ileum. Biopsied. Recommendation: - Discharge patient to home. - Resume previous diet. - Continue present medications. - Await pathology results. - Repeat colonoscopy in 5 years for surveillance based on pathology results. Procedure Code(s): --- Professional --- 02853, Colonoscopy, flexible; with biopsy, single or multiple CPT copyright 2017 [employer]. All rights reserved. The codes documented in this report are preliminary and upon bellhop review may be revised to meet current compliance requirements. Yoni Trejo DO 12/31/2021 10:35:00 AM This report has been signed electronically. Number of Addenda: 0 Note Initiated On: 12/31/2021 10:06 AM
--- NOTE | 2021-12-31 10:35 | OP.CCLET_ITS ---
12/31/2021 Chuck Bolden Md Re : Colonoscopy procedure for Brittani Lee Dear Yuan This procedure was performed on Friday, December 31, 2021. My impressions and recommendations are as follows: Impressions : - Melanosis in the colon. Biopsied. - Congested mucosa in the terminal ileum. Biopsied. Recommendations : - Discharge patient to home. - Resume previous diet. - Continue present medications. - Await pathology results. - Repeat colonoscopy in 5 years for surveillance based on pathology results. My findings are described in the full procedure note, which is enclosed. If I can be of further assistance, please feel free to contact me at . Sincerely, Yoni Trejo, 12/31/2021 10:35:00 AM This report has been signed electronically.
== END 2021-12-31 11:10 | disposition home or self-care (01) ==
LOC: EN 08:24 → AC 08:26
PROVIDERS: Anesthesiology; PCP Family Medicine; Referring Provider Family Medicine; Visit Provider Internal Medicine Gastroenterology
PROC: 0DJD8ZZ Inspection of Lower Intestinal Tract, Via Natural or Artificial Opening Endoscopic (ICD-10-PCS; CPT 45378; principal; 2021-12-31 09:10)
DX: K63.89 Other specified diseases of intestine (principal); K44.9 Diaphragmatic hernia without obstruction or gangrene; F90.9 Attention-deficit hyperactivity disorder, unspecified type; F32.A Depression, unspecified; Z79.899 Other long term (current) drug therapy
CPT/HCPCS: 45380; 81025; 88305; J7120